=== PATIENT | male | born 1955 ===

== ENCOUNTER → 2022-07-26 | Outpatient (CLI) | payer MEDICARE, BC | END | disposition home or self-care (01) | LOC: LAB SHORT 11:49 → PLD 11:49 | DX: D36.10 Benign neoplasm of peripheral nerves and autonomic nervous system, unspecified (principal) | CPT/HCPCS: 88305 ==

== ENCOUNTER → 2023-09-26 | Outpatient (CLI) | payer MEDICARE, BC | LOC: LAB SHORT 08:16 → PLD 08:16 | DX: D48.5 Neoplasm of uncertain behavior of skin (principal) | CPT/HCPCS: 88305 ==